=== PATIENT | male | born 1995 | race Caucasian/White ===

== ENCOUNTER 2021-01-11 20:42 | Emergency (ER) | payer SELFPAY ==
[~2021-01-11] VITALS: Ht 185.4 cm; Wt 93.2 kg
[2021-01-11 20:43] VITALS: TEMP 98.4
[2021-01-11] MEDS ORDERED: SEROQUEL 2525 MG/TAB PO (20:55)
[2021-01-11 22:48] VITALS: BP 139/89; PULSE 109
== END 2021-01-11 22:39 | disposition left against medical advice (07) ==
LOC: COL.ER 20:42
DX: R07.89 Other chest pain (principal); F32.9 Major depressive disorder, single episode, unspecified; F17.210 Nicotine dependence, cigarettes, uncomplicated; Z82.3 Family history of stroke; Z82.49 Family history of ischemic heart disease and other diseases of the circulatory system; Z88.6 Allergy status to analgesic agent